=== PATIENT | male | born 1980 | race African-American/Black ===

== ENCOUNTER 2020-07-14 03:21 | Emergency (ER) | payer SELFPAY ==
[2020-07-14] VITALS (14 sets, daily range): BP systolic 108–129; BP diastolic 69–84; PULSE 79–90; RESP 15–18; TEMP 37.3; O2SAT 100
--- NOTE | 2020-07-14 03:45 | ED.ALLEREA ---
HPI - Allergic Reaction General Chief complaint: Allergic Reaction Stated complaint: allergic reaction Time Seen by Provider: 07/14/20 03:33 Source: patient Mode of arrival: ambulatory Limitations: no limitations History of Present Illness HPI narrative: Patient is a 40-year-old male complaining of sudden onset of right upper lip swelling that started around midnight tonight. Patient denies any tongue, throat or facial swelling. Patient denies any shortness of breath or chest pain. Patient denies any extremity swelling. Patient denies rash. Patient denies using any new medications, personal hygiene products, or new food. Patient does admit to taking lisinopril for his blood pressure which she states that he has been taking for years. Related Data Home Medications Medication Instructions Recorded Confirmed amlodipine 10 mg PO DAILY 07/14/20 hydrochlorothiazide 25 mg PO DAILY 07/14/20 lisinopril 10 mg PO DAILY 07/14/20 Allergies Allergy/AdvReac Type Severity Reaction Status Date / Time ciprofloxacin [From Cipro] Allergy Hives Verified 07/14/20 03:38 metronidazole [From Flagyl] Allergy Hives Verified 07/14/20 03:31 Review of Systems Review of Systems: All systems reviewed & are unremarkable except as noted in HPI and below Constitutional: Constitutional: Denies body ache(s), Denies chills, Denies excessive sweating, Denies fatigue, Denies fever(s), Denies headache(s), Denies lethargy, Denies malaise, Denies weakness and Denies weight loss Eyes: Eyes: Denies blurry vision, Denies change in vision and Denies loss of vision ENT: Denies dizziness, Denies ear discharge, Denies headache(s), Denies epistaxis, Denies nasal congestion, Denies neck pain, Denies throat swelling and Denies tongue swelling Cardiovascular: Cardiovascular: Denies chest pain, Denies chest pain at rest, Denies chest pain with activity, Denies diaphoresis, Denies rapid heart rate, Denies edema, Denies irregular heart rhythm, Denies lightheadedness, Denies palpitations, Denies dyspnea and Denies dyspnea on exertion Respiratory: Respiratory: Denies chest congestion, Denies cough, Denies hemoptysis, Denies dyspnea and Denies dyspnea on exertion Gastrointestinal: Gastrointestinal: Denies abdominal pain, Denies melena, Denies hematochezia, Denies diarrhea, Denies nausea, Denies vomiting and Denies hematemesis Musculoskeletal: Musculoskeletal: Denies abnormal gait, Denies deformity, Denies joint swelling, Denies limited range of motion, Denies neck pain and Denies numbness Neurologic: Denies Abnormal speech present, Denies abnormal gait, Denies confusion, Denies dizziness, Denies headache(s), Denies focal weakness, Denies loss of vision, Denies numbness, Denies Other visual disturbances, Denies Sensory deficit (Neuro) and Denies weakness Psychiatric: Psychiatric: Denies confusion, Denies depression, Denies auditory hallucinations, Denies homicidal ideation and Denies suicidal ideation Endocrine: Endocrine: Denies cold intolerance, Denies excessive sweating, Denies fatigue, Denies heat intolerance and Denies palpitations Hematologic/Lymphatic: Hematologic/Lymphatic: Denies easy bleeding and Denies easy bruising Allergic/Immunologic: Allergic/Immunologic: Denies lip swelling, Denies throat swelling and Denies tongue swelling PMFSH Social History Social History Gender identity (if verbalized by the patient): Male Sexual Orientation (if Verbalized by the Patient): Straight or Heterosexual Exam Const: General: cooperative, healthy appearing, comfortable, no acute distress, well developed, alert and awake; No confusion Orientation/consciousness: oriented to person, oriented to place, oriented to time, patient oriented x3 and No confusion Limitations: no limitations HENMT: Head: normal to inspection, normocephalic and atraumatic Ears: hearing grossly normal bilaterally, TM normal on the right and TM normal on the left General nose exam: Normal externa
[2020-07-14] MEDS: methylPREDNISolone SOD SUCC 125 MG VIAL IV PUSH (03:49)
[2020-07-14] MEDS: FAMOTIDINE 20 MG/2 ML VIAL IV PUSH (03:49)
[2020-07-14] MEDS: EPINEPHrine HCL INJ 1 MG/ML AMPUL 0.3 MG SUB-Q (03:50)
[2020-07-14] MEDS: diphenhydrAMINE HCl INJ 50 MG/ML VIAL IV PUSH (03:50)
== END 2020-07-14 05:03 | disposition home or self-care (01) ==
PROVIDERS: Emergency Provider Emergency Medicine; PCP Physician Assistant
DX: T78.3XXA Angioneurotic edema, initial encounter (principal)
CPT/HCPCS: 96372; 96374; 96375; 99284; J0171; J1200; J2930